=== PATIENT | female | born 1965 | race Caucasian/White ===

== ENCOUNTER → 2016-10-12 | Outpatient (CLI) | payer OTHER ==
--- NOTE | 2016-10-16 15:20 | MAM ---
EXAM DESCRIPTION: Screening Mammogram,Bilateral CLINICAL HISTORY: 50 yearsFemaleSCREENING. Hysterectomy.. COMPARISON: Digital 2-D bilateral screening examination 05/27/2014.. No prior reports available. Reports from prior examinations also reviewed. Report from prior examination also reviewed. TECHNIQUE: Bilateral CC and MLO projection and LM/ML full-field images, spots digital screening mammographic technique. CAD was utilized. FINDINGS: The breast parenchymal density pattern is: Scattered areas of fibroglandular density. No skin thickening or nipple retraction bilateral solitary microcalcifications. No focal, stellate mass or density, focal asymmetry , and no suspicious microcalcifications bilaterally. Stable mammograms compared to the prior study May 2014. IMPRESSION: BI-RADS CATEGORY: 2 - BENIGN FINDINGS. FOLLOW UP: Routine digital bilateral screening, one year interval from September 2016. Written communication explaining the findings and follow-up, will be mailed to the patient and referring health care provider. According to the [employer], yearly mammograms are recommended starting at age 40 and continuing as long as a woman is in good health. Any breast change noted on a breast self-exam should be reported promptly to the patient's healthcare provider. Breast MRI is recommended for women with an approximately 20-25% or greater lifetime risk of breast cancer, including women with a strong family history of breast or ovarian cancer and women who have been treated for Hodgkin's disease. A negative mammographic report should not delay tissue diagnosis in patients with significant clinical history or physical findings. Extremely dense breast tissue limits the sensitivity of digital mammography. Electronically signed by: Schuyler Crane MD 10/16/2016 3:18 PM CDT Workstation: [id number]
== END ==
LOC: MAMMO 14:08
PROVIDERS: ATTEND Family Medicine
DX: Z12.31 Encounter for screening mammogram for malignant neoplasm of breast (principal)

== ENCOUNTER → 2017-08-31 | Outpatient (CLI) | payer OTHER | LOC: LAB.O 10:41 | PROVIDERS: ATTEND Family Medicine | DX: Z01.84 Encounter for antibody response examination (principal) ==

== ENCOUNTER 2018-08-19 05:35 | Day surgery (SDC) | payer OTHER ==
[2018-08-19] MEDS ORDERED: MOXIFLOXACIN HCL (OPHTH) 1 DROP DROPS ONE (06:06)
[2018-08-19] MEDS ORDERED: PROPARACAINE 0.5% OPHTH SOL 15 ML BTTL ONE (06:07)
[2018-08-19] MEDS ORDERED: TROP 1%/CYCLOPEN 1%/PHENYL 2% DROPS ONE (06:07)
[2018-08-19] MEDS: PROPARACAINE 0.5% OPHTH SOL 15 ML BTTL RIGHT_EYE ONE (11:40)
[2018-08-19] MEDS ORDERED: MIDAZOLAM INJ 2 MG/2 ML VIAL ONE ×3 (11:47→11:55)
[2018-08-19] MEDS: LIDOCAINE 1% MPF 2 ML VIAL INJ ONE ×2 (11:51→11:57)
[2018-08-19] MEDS: DEXAMETHASONE 0.1% OPHTH SOL 1 DROP RIGHT_EYE ONE ×2 (11:52→12:08)
[2018-08-19] MEDS: MOXIFLOXACIN HCL (OPHTH) 1 DROP DROPS RIGHT_EYE ONE ×2 (11:52→12:07)
[2018-08-19] MEDS: BRIMONIDINE 0.2% OPHTH DROPS RIGHT_EYE ONE ×2 (11:53→12:08)
[2018-08-19] MEDS: TOBRAMYCIN SULF 0.3 % OPHT SOL 1 DROP RIGHT_EYE ONE ×2 (11:53→12:08)
== END 2018-08-19 12:50 | disposition home or self-care (01) ==
LOC: AMB 05:35
PROVIDERS: ATTEND Ophthalmology
DX: H25.11 Age-related nuclear cataract, right eye (principal); Z79.899 Other long term (current) drug therapy
CPT/HCPCS: 00142; 66984; J2250

== ENCOUNTER 2018-09-02 05:38 | Day surgery (SDC) | payer OTHER ==
[2018-09-02] MEDS ORDERED: MOXIFLOXACIN HCL (OPHTH) 1 DROP DROPS ONE (05:44)
[2018-09-02] MEDS ORDERED: TROP 1%/CYCLOPEN 1%/PHENYL 2% DROPS ONE (05:45)
[2018-09-02] MEDS ORDERED: PROPARACAINE 0.5% OPHTH SOL 15 ML BTTL ONE (05:45)
[2018-09-02] MEDS ORDERED: MIDAZOLAM INJ 2 MG/2 ML VIAL ONE ×3 (07:14→09:24)
[2018-09-02] MEDS ORDERED: DEXAMETHASONE 0.1% OPHTH SOL 1 DROP LEFT_EYE ONE ×2 (09:21→09:30)
[2018-09-02] MEDS ORDERED: MOXIFLOXACIN HCL (OPHTH) 1 DROP DROPS LEFT_EYE ONE ×2 (09:21→09:30)
[2018-09-02] MEDS ORDERED: LIDOCAINE 1% MPF 2 ML VIAL INJ ONE (09:21)
[2018-09-02] MEDS ORDERED: BRIMONIDINE 0.2% OPHTH DROPS LEFT_EYE ONE ×2 (09:22→09:30)
[2018-09-02] MEDS ORDERED: TOBRAMYCIN SULF 0.3 % OPHT SOL 1 DROP LEFT_EYE ONE ×2 (09:22→09:30)
== END 2018-09-02 10:00 | disposition home or self-care (01) ==
LOC: AMB 05:38
PROVIDERS: ATTEND Ophthalmology
DX: H25.012 Cortical age-related cataract, left eye (principal)
CPT/HCPCS: 00142; 66984; J2250

== ENCOUNTER → 2019-10-01 | Outpatient (CLI) | payer OTHER ==
--- NOTE | 2019-10-09 15:04 | RAD ---
EXAM DESCRIPTION: UGI: Rad-Fluoroscopy. CLINICAL HISTORY: GERD. Chest pain with normal stress test. Sensation of "food stuck in throat." COMPARISON: Chest x-ray May 2017. TECHNIQUE: Fluoroscopy performed by Dr. Crane The patient swallowed barium pill with water. The patient swallowed gas-producing granules, water, and heavy density barium under fluoroscopic visualization. The images were obtained with the patient horizontal and upright. Patient drank medium density barium through a straw in the semi-prone position. 66 fluoroscopic cine loop images. 12 single static fluoroscopic images. Total fluoroscopy time was 3.0 minutes.. DAP: 3 5.6 Gy-cm2.. FINDINGS: Patient swallowed the barium pill without difficulty with normal transit from the oropharynx to the stomach. Swallowing mechanism showed no significant asymmetry or delay. No laryngeal penetration or aspiration. Primary peristaltic wave was noted to approximately mid esophagus. Tertiary and secondary contractions in the distal esophagus. In the horizontal position, patient swallowing showed reflux from the distal esophagus to the proximal esophagus. In the standing position, there was significant reflux of air from the stomach into the distal esophagus. Gastroesophageal reflux in the horizontal position barium was inconsistent. Essentially no reflux with maneuvers including Valsalva and coughing. No mucosal lesions in the mid or distal esophagus. No mass effect. Tiny sliding hiatal hernia. Stomach well-distended with gas and contrast material with no intrinsic mucosal lesions or mass effect. No intrinsic mucosal lesions or mass effect on the duodenal bulb and the remainder of the duodenum. IMPRESSION: 1. The swallowing mechanism is unremarkable. 2. Normal transit time of barium pill from the oral cavity to the stomach. 3. Primary peristaltic wave only in the proximal esophagus. Abnormal motility of the distal esophagus. Reflux from the distal to the proximal esophagus of barium in the horizontal position. Inconsistent gastroesophageal reflux. No esophageal mucosal lesions or mass effect. Tiny hiatal hernia. 4. Stomach and duodenum are unremarkable. Electronically signed by: Schuyler Crane MD 10/09/2019 3:03 PM CDT
== END ==
LOC: RAD 08:13
PROVIDERS: ATTEND Family Medicine
DX: K21.9 Gastro-esophageal reflux disease without esophagitis (principal); K22.4 Dyskinesia of esophagus; K44.9 Diaphragmatic hernia without obstruction or gangrene

== ENCOUNTER → 2019-10-14 | Outpatient (CLI) | payer OTHER ==
--- NOTE | 2019-10-15 15:07 | MAM ---
EXAM DESCRIPTION: 3D Screening BILATERAL : Digital Mammography. CLINICAL HISTORY: 53 years Female ANNUAL SCREENING . Chest pain. No family history breast cancer. Menarche age 12. Childbirth age 26. Menopause age 41. No HRT. Lifetime risk of developing breast cancer (Tyrer-Cuzick model)(%): 9.4. COMPARISON: 2-D digital screening bilateral mammography September 2016. TECHNIQUE: Bilateral CC and MLO projection full-field images, digital tomosynthesis mammographic technique. Bilateral digital 2-D full-field MLO images. CAD available for 2-D images. FINDINGS: The breast parenchymal density pattern is: Scattered areas of fibroglandular density. No skin thickening or nipple retraction bilaterally.. Solitary microcalcifications. Axillary and intramammary lymph nodes. No new focal, stellate mass or density, focal asymmetry , and no suspicious microcalcifications bilaterally. Stable mammograms compared to prior study. Taking into account, differences in mammographic technique. IMPRESSION: Benign exam. BIRAD CATEGORY: 2 BENIGN FINDINGS. RECOMMENDATIONS: FOLLOW UP: Routine digital bilateral mammographic screening, one year interval from September 2019. Written communication explaining the IMPRESSION and follow-up, will be mailed to the patient and referring health care provider. According to the [employer], yearly mammograms are recommended starting at age 40 and continuing as long as a woman is in good health. Any breast change noted on a breast self-exam should be reported promptly to the patient's healthcare provider. Breast MRI is recommended for women with an approximately 20-25% or greater lifetime risk of breast cancer, including women with a strong family history of breast or ovarian cancer and women who have been treated for Hodgkin's disease. A negative mammographic report should not delay tissue diagnosis in patients with significant clinical history or physical findings. Extremely dense breast tissue limits the sensitivity of digital mammography. Electronically signed by: Schuyler Crane MD 10/15/2019 3:05 PM CDT
== END ==
LOC: MAMMO 09:00
PROVIDERS: ATTEND Family Medicine
DX: Z12.31 Encounter for screening mammogram for malignant neoplasm of breast (principal)